=== PATIENT | female | born 1935 ===

== ENCOUNTER 2016-12-28 20:16 | Emergency (ER) | payer MEDICARE, MEDICAID ==
[2016-12-28] MEDS ORDERED: Sodium Chloride 0.9% 1,000 ML IV STA (20:57)
[2016-12-28 20:59] VITALS: RESP 16; TEMP 97.9; BMI 19.6
--- NOTE | 2016-12-28 21:21 | ED PDOC ---
Arrival/HPI - General Chief Complaint: GI Problem Time Seen by Provider: 12/28/16 20:51 Historian: Patient, Family - History of Present Illness Narrative History of Present Illness (Text): 12/28/16 21:14 81yo female with PMhx of GERD, hypertension, Dementia, present with complaint of multiple episodes of nonbilious/bloody vomiting and diarrhea, chills and weakness. the daughter by the bedside states vomiting became worse today. Denies abdominal pain, fever, chest pain, urinary symptoms, hematemesis, hematochezia, melena, sick contact, travel, Past Medical History - Provider Review Nursing Documentation Reviewed: Yes - Infectious Disease Hx of Infectious Diseases: None - Tetanus Immunization Tetanus Immunization: Unknown - Reproductive Menopause: Yes - Cardiac Hx Hypertension: Yes Hx Pacemaker: No - Pulmonary Hx Respiratory Disorders: No Hx Asthma: No - Neurological Hx Dementia: Yes Hx Paralysis: No - HEENT Hx HEENT Disorder: No Hx Cataracts: (cataract sx) - Renal Hx Renal Disorder: No - Endocrine/Metabolic Hx Endocrine Disorders: (periods of hypoglycemia) - Hematological/Oncological Hx Blood Transfusions: No Hx Blood Transfusion Reaction: No - Integumentary Hx Dermatological Disorder: No - Musculoskeletal/Rheumatological Hx Musculoskeletal Disorders: No Hx Arthritis: Yes Hx Falls: Yes Hx Osteoporosis: Yes Hx Unsteady Gait: Yes - Gastrointestinal Hx Diarrhea: Yes Hx Gastroesophageal Reflux: Yes Hx Nausea: Yes Hx Vomiting: Yes - Genitourinary/Gynecological Hx Genitourinary Disorders: No - Psychiatric Hx Psychophysiologic Disorder: No Hx Emotional Abuse: No Hx Physical Abuse: No Hx Substance Use: No - Surgical History Hx Cataract Extraction: Yes Hx Orthopedic Surgery: Yes (tib/fib post trauma) Other/Comment: "stomach surgery to remove mass" 1982 - Anesthesia Hx Anesthesia: Yes Hx Anesthesia Reactions: Yes (MILD NAUSEA) Hx Malignant Hyperthermia: No - Suicidal Assessment Feels Threatened In Home Enviroment: No Family/Social History - Physician Review Nursing Documentation Reviewed: Yes Family/Social History: Unknown Family HX Smoking Status: Never Smoked Hx Alcohol Use: No Hx Substance Use: No Allergies/Home Meds Allergies/Adverse Reactions: Allergies No Known Allergies Allergy (Verified 11/05/16 12:37) Home Medications: Home Meds Medication Instructions Recorded Confirmed Pregabalin [Lyrica] 50 mg PO TID 08/19/14 12/28/16 Rivastigmine 9.5 mg/24 hr [Exelon 1 patch TD DAILY 08/19/14 12/28/16 9.5 mg Patch] Carbidopa/Levodopa 25/100 mg 0.5 tab PO BID 03/25/16 12/28/16 [Sinemet] Valsartan [Diovan] 80 mg PO DAILY 03/25/16 12/28/16 Esomeprazole Magnesium [Nexium 20 mg PO DAILY 12/28/16 12/28/16 24Hr] Review of Systems - Physician Review All systems were reviewed & negative as marked: Yes - Review of Systems Constitutional: Normal Eyes: Normal ENT: Normal Respiratory: Normal Cardiovascular: Normal Gastrointestinal: Diarrhea, Nausea, Vomiting. absent: Abdominal Pain, Constipation, Hematochezia, Hematemesis Genitourinary Female: Normal Musculoskeletal: Normal Skin: Normal Neurological: Normal Endocrine: Normal Hemo/Lymphatic: Normal Psychiatric: Normal Physical Exam Vital Signs Reviewed: Yes Vital Signs Temp Pulse Resp BP Pulse Ox 12/28/16 23:24 61 16 135/65 99 12/28/16 21:25 56 L 16 135/70 100 12/28/16 20:17 97.9 F 60 16 146/76 98 Temperature: Afebrile Blood Pressure: Normal Pulse: Regular Respiratory Rate: Normal Appearance: Positive for: Well-Appearing, Non-Toxic, Comfortable Pain Distress: None Mental Status: Positive for: Alert and Oriented X 3 - Systems Exam Head: Present: Atraumatic, Normocephalic Pupils: Present: PERRL Extroacular Muscles: Present: EOMI Conjunctiva: Present: Normal Mouth: Present: Moist Mucous Membranes Neck: Present: Normal Range of Motion Respiratory/Chest: Present: Clear to Auscultation, Good Air Exchange. No: Respiratory Distress, Accessory Muscle Use Cardiovascular: Present: Regular Rate and Rhythm, Normal S1, S2. No: Murmurs Abdomen: Present: Normal Bowel Sounds. No: Tenderness, Distention, Peritoneal Signs, Rebound, Guarding, McBurney's Point Tender, Rovsing's Sign Present Back: Present: Normal Inspection Upper Extremity: Present: Normal Inspection. No: Cyanosis, Edema Lower Extremity: Present: Normal Inspection. No: Edema Neurological: Present: GCS=15, CN II-XII Intact, Speech Normal Skin: Present: Warm, Dry, Normal Color. No: Rashes Psychiatric: Present: Alert, Oriented x 3, Normal Insight, Normal Concentration Medical Decision Making ED Course and Treatment: 12/29/16 00:43 PT presented with stated history. She appeared comfortable and in no distress in ED. She was hydrated. On re evaluation she states she feels much better with medication. She was able to tolerate fluid in ED. Lab was unremarkable. She had leukocyte in the UA with WBC wnl. Pt will however be placed on abx. She was given and DC home with keflex. Referred to her PMD. Advised to follow BLAND diet. TRT ED for any new or worsening symptoms. - Lab Interpretations Lab Results: 12/28/16 21:20 12/28/16 21:20 Lab Results 12/28/16 22:15: Urine Color Yellow, Urine Appearance Clear, Urine pH 6.0, Ur Specific [place] 1.020, Urine Protein Negative, Urine Glucose (UA) Negative, Urine Ketones Negative, Urine Blood Negative, Urine Nitrate Negative, Urine Bilirubin Negative, Urine Urobilinogen 0.2, Ur Leukocyte Esterase Small H, Urine RBC Negative, Urine WBC 1 - 3, Ur Epithelial Cells 0 - 2 12/28/16 21:20: pO2 37, VBG pH 7.36, VBG pCO2 52.0, VBG HCO3 29.4 H, VBG Total CO2 31.0 H, VBG O2 Sat (Calc) 76.1 H, VBG Base Excess 2.8 H, VBG Potassium 4.0, Sodium 134.0, Chloride 102.0, Glucose 138 H, Lactate 2.1, FiO2 21.0, Venous Blood Potassium 4.0 12/28/16 21:20: Sodium 134, Chloride 97 L, Potassium 4.0, Carbon Dioxide 28, Anion Gap 13, BUN 7, Creatinine 0.6, Est GFR ( Amer) > 60, Est GFR (Non- Af Amer) > 60, Random Glucose 132 H, Calcium 9.0, Total Bilirubin 0.5, AST 24, ALT 14, Alkaline Phosphatase 126, Lactate Dehydrogenase 520, Total Creatine Kinase 54, Troponin I < 0.01, Total Protein 7.6, Albumin 3.7, Globulin 3.9, Albumin/Globulin Ratio 0.9 L, Amylase 53, Lipase 57 12/28/16 21:20: PT 11.2, INR 1.04, APTT 30.5 12/28/16 21:20: WBC 5.7 D, RBC 4.32, Hgb 10.7 L, Hct 32.9 L, MCV 76.2 L, MCH 24.8 L, MCHC 32.5, RDW 16.9 H, Plt Count 345, MPV 9.4, Gran % 69.4 H, Lymph % ( Auto) 22.6, [place] % (Auto) 7.6 H, Eos % (Auto) 0.2 L, Baso % (Auto) 0.2, Gran # 3.93, Lymph # 1.3, [place] # 0.4, Eos # 0.0, Baso # 0.01 - Medication Orders Current Medication Orders: Discontinued Medications Cephalexin Monohydrate (Keflex) 500 mg PO STAT STA Stop: 12/28/16 23:11 Last Admin: 12/28/16 23:25 Dose: 500 mg Famotidine (Pepcid) 20 mg IVP STAT STA Stop: 12/28/16 20:58 Last Admin: 12/28/16 21:22 Dose: 20 mg Sodium Chloride (Sodium Chloride 0.9%) 1,000 mls @ 100 mls/hr IV .Q10H STA Stop: 12/29/16 06:56 Last Admin: 12/28/16 21:21 Dose: 100 mls/hr Ondansetron HCl (Zofran Inj) 4 mg IVP STAT STA Stop: 12/28/16 20:58 Last Admin: 12/28/16 21:24 Dose: 4 mg Disposition/Present on Arrival - Present on Arrival Any Indicators Present on Arrival: No History of DVT/PE: No History of Uncontrolled Diabetes: No Urinary Catheter: No History of Decub. Ulcer: No History Surgical Site Infection Following: None - Disposition Have Diagnosis and Disposition been Completed?: Yes Diagnosis: Vomiting and diarrhea, UTI (urinary tract infection) Disposition: HOME/ ROUTINE Disposition Time: 23:00 Patient Plan: Discharge Condition: STABLE Discharge Instructions (ExitCare): Urinary Tract Infection in Women (ED), Acute Nausea and Vomiting (ED) Additional Instructions: Follow up with your doctor Follow BLAND diet Return to ED for any new or worsening symptoms Prescriptions: Cephalexin [cephalexin] 500 mg PO QID #28 cap Nitrofurantoin Macrocrystals [Macrobid] 100 mg PO BID #14 cap Ondansetron ODT [Zofran ODT] 4 mg PO Q8 #8 odt Referrals: Andrew Hart MD [Staff Provider] - Follow up with primary
[2016-12-28 21:27] LABS: ADD MANUAL DIFF? NO
[2016-12-28 21:38] LABS: BASO # 0.01 K/mm3 (0.0-2.0); BASO % 0.2 % (0.0-3.0); EOS % 0.2 % (1.5-5.0); GRAN # 3.93 (1.4-6.5); GRAN % 69.4 % (50.0-68.0); HEMATOCRIT 32.9 % (36.0-48.0); LYMPH # 1.3 (1.2-3.4); LYMPH % 22.6 % (22.0-35.0); MEAN CELL VOLUME 76.2 fL (80.0-105.0); MEAN CORPUSCULAR HEMOGLOBIN 24.8 pg (25.0-35.0); MEAN CORPUSCULAR HGB CONC 32.5 g/dl (31.0-37.0); MEAN PLATELET VOLUME 9.4 fl (7.0-11.0); MONO # 0.4 (0.1-0.6); MONO % 7.6 % (1.0-6.0); PLATELET COUNT 345 10^3/uL (120.0-450.0); RED CELL DISTRIBUTION WIDTH 16.9 % (11.5-14.5); WHITE BLOOD COUNT 5.7 10^3/ul (4.5-11.0)
[2016-12-28 21:39] LABS: ALB/GLOB RATIO 0.9 (1.1-1.8); ALKALINE PHOSPHATASE 126 U/L (38-133); ALT/SGPT 14 U/L (7-56); AMYLASE 53 U/L (35-125); AST/SGOT 24 U/L (15-39); BILIRUBIN,TOTAL 0.5 mg/dL (0.2-1.3); BLOOD UREA NITROGEN 7 mg/dL (7-21); CARBON DIOXIDE 28 mmol/L (21-33); CHLORIDE 97 mmol/L (98-107); GFR AFRICAN-AMERICAN > 60; GLUCOSE,RANDOM 132 mg/dL (70-110); LIPASE 57 U/L (23-300); SODIUM 134 mmol/L (132-148); TOTAL PROTEIN 7.6 g/dL (5.8-8.3)
[2016-12-28 21:45] LABS: INR 1.04 (0.93-1.08); PARTIAL THROMBOPLASTIN TIME 30.5 Seconds (23.7-30.8)
[2016-12-28 21:52] LABS: TROPONIN I < 0.01 ng/mL
[2016-12-28 21:54] LABS: VENOUS BLOOD GAS BASE EXCESS 2.8 mmol/L (0.0-2.0); VENOUS BLOOD PH 7.36 (7.32-7.43)
[2016-12-28 22:29] LABS: URINE BILIRUBIN NEGATIVE (NEGATIVE); URINE BLOOD NEGATIVE (NEGATIVE); URINE GLUCOSE (UA) NEGATIVE (NEGATIVE); URINE KETONE NEGATIVE (NEGATIVE); URINE LEUKOCYTE ESTERASE SMALL Leu/uL (NEGATIVE); URINE PROTEIN NEGATIVE mg/dL (<30 mg/dL); URINE UROBILINOGEN 0.2 E.U./dL (<1 E.U./dL)
[2016-12-28 22:31] LABS: URINE APPEARANCE CLEAR (CLEAR); URINE COLOR YELLOW (YELLOW)
[2016-12-28 22:33] LABS: URINE EPITHELIAL CELLS 0 - 2 /hpf (0-5); URINE RBC NEGATIVE /hpf (0-2)
[2016-12-28 23:24] VITALS: BP 135/65; PULSE 61; O2SAT 99
--- NOTE | 2016-12-29 22:12 | CARD ---
APPROVED REPORT EKG Measurement Heart [id number] <Conclusion> Sinus bradycardia Otherwise normal ECG
== END 2016-12-28 23:30 | disposition home or self-care (01) ==
LOC: ED 20:16
DX: N39.0 Urinary tract infection, site not specified (principal); R11.10 Vomiting, unspecified; R19.7 Diarrhea, unspecified
CPT/HCPCS: 80053; 81001; 82150; 82550; 82803; 83615; 83690; 84484; 85025; 85610; 85730; 87086; 93005; 96374; 96375; 99285; J2405; J7040

== ENCOUNTER 2017-05-06 14:02 | Observation (INO) | payer MEDICARE, MEDICAID ==
[2017-05-06] MEDS ORDERED: Sodium Chloride 0.9% 1,000 ML IV STA (14:38)
--- NOTE | 2017-05-06 14:43 | ED PDOC ---
Arrival/HPI - General Chief Complaint: Syncope Time Seen by Provider: 05/06/17 14:35 Historian: Patient, Family - History of Present Illness Narrative History of Present Illness (Text): 05/06/17 14:36 A 81 year old female is brought into the emergency department by family after witnessed syncopal episode prior to arrival. Son-in-law reports patient passed out while walking and family member caught her before falling. Patient reports she experienced diaphoresis and generalized weakness prior to episode. Patient denies any trauma, injuries, chest pain, shortness of breath, dyspnea on exertion or any other complaints. Time/Duration: Prior to Arrival Context: Home Past Medical History - Provider Review Nursing Documentation Reviewed: Yes - Infectious Disease Hx of Infectious Diseases: None - Tetanus Immunization Tetanus Immunization: Unknown - Cardiac Hx Cardiac Disorders: Yes Hx Hypertension: Yes Hx Pacemaker: No - Pulmonary Hx Respiratory Disorders: No Hx Asthma: No - Neurological Hx Neurological Disorder: Yes Hx Dementia: Yes Hx Paralysis: No - HEENT Hx HEENT Disorder: No Hx Cataracts: (cataract sx) - Renal Hx Renal Disorder: No - Endocrine/Metabolic Hx Endocrine Disorders: Yes (periods of hypoglycemia) - Hematological/Oncological Hx Blood Transfusions: No Hx Blood Transfusion Reaction: No - Integumentary Hx Dermatological Disorder: No - Musculoskeletal/Rheumatological Hx Musculoskeletal Disorders: No Hx Arthritis: Yes Hx Falls: Yes Hx Osteoporosis: Yes Hx Unsteady Gait: Yes - Gastrointestinal Hx Diarrhea: Yes Hx Gastroesophageal Reflux: Yes Hx Nausea: Yes Hx Vomiting: Yes - Genitourinary/Gynecological Hx Genitourinary Disorders: No - Psychiatric Hx Psychophysiologic Disorder: No Hx Emotional Abuse: No Hx Physical Abuse: No Hx Substance Use: No - Surgical History Hx Cataract Extraction: Yes Hx Orthopedic Surgery: Yes (tib/fib post trauma) Other/Comment: "stomach surgery to remove mass" 1982 - Anesthesia Hx Anesthesia: Yes Hx Anesthesia Reactions: Yes (MILD NAUSEA) Hx Malignant Hyperthermia: No - Suicidal Assessment Feels Threatened In Home Enviroment: No Family/Social History - Physician Review Nursing Documentation Reviewed: Yes Family/Social History: No Known Family HX Smoking Status: Never Smoked Hx Alcohol Use: No Hx Substance Use: No Allergies/Home Meds Allergies/Adverse Reactions: Allergies No Known Allergies Allergy (Verified 05/06/17 14:09) Home Medications: Home Meds Medication Instructions Recorded Confirmed Valsartan [Diovan] 80 mg PO DAILY 03/25/16 05/06/17 Esomeprazole Magnesium [Nexium 20 mg PO DAILY 12/28/16 05/06/17 24Hr] Gabapentin [Neurontin] 100 mg PO DAILY 05/06/17 05/06/17 Physical Exam - Physical Exam Narrative Physical Exam (Text): - Review of Systems Constitutional: (+) Generalized weakness absent: Weight Change, Fevers Eyes: Normal ENT: Normal Respiratory: Normal absent: SOB, HENDRICKS, Cough, Sputum Cardiovascular: (+) Syncope absent: Chest pain, Palpitations Gastrointestinal: Normal absent: Abdominal pain, Diarrhea, Nausea, Vomiting Genitourinary: Normal. absent: Dysuria, Frequency, Hematuria Musculoskeletal: Normal. absent: Arthralgias, Back Pain, Neck Pain Skin: Normal Neurological: Normal absent: Focal Weakness Endocrine: (+) Diaphoresis Hemo/Lymphatic: Normal Psychiatric: Normal - Physical exam Patient appears age appropriate, speaking full sentences without difficulty - Systems Exam Head: Present: Atraumatic, Normocephalic Pupils: Present: PERRL Extraocular Muscles: Present: EOMI Conjunctiva: Present: Normal Mouth: Present: Moist Mucous Membranes Neck: Present: Normal Range of Motion. No: MIDLINE TENDERNESS, Paraspinal Tenderness Respiratory/Chest: Present: Clear to Auscultation, Good Air Exchange. No: Respiratory Distress, Accessory Muscle Use, Tachypnic Cardiovascular: Present: Regular Rate and Rhythm, Normal S1, S2, Peripheral Pulses Present. No: Murmurs Abdomen: Present: Normal Bowel Sounds, No: Tenderness, Peritoneal Signs, Rebound, Guarding, Distention Back: Present: Normal Inspection. No: Midline Tenderness, Paraspinal Tenderness Upper Extremity: Present: Normal Inspection. No: Cyanosis, Edema Lower Extremity: Present: Normal Inspection. No: Edema Neurological: Present: GCS=15, Speech Normal, cranial nerves II through XII fully intact with no cerebellar abnormality, neuro-sensory fully intact. No focal neurological deficits. Skin: Present: Warm, Dry, Normal Color. No: Rashes Lymphatic: Present: OX3, NI, NC Psychiatric: Present: Alert, Oriented x 3, Normal Insight, Normal Concentration Vital Signs Reviewed: Yes Vital Signs Temp Pulse Resp BP Pulse Ox 05/06/17 14:15 97.8 F 60 18 119/72 100 Temperature: Afebrile Blood Pressure: Normal Pulse: Regular Respiratory Rate: Normal Appearance: Positive for: Well-Appearing, Non-Toxic, Comfortable Pain Distress: None Mental Status: Positive for: Alert and Oriented X 3 Finger Stick Blood Glucose: 111 Medical Decision Making ED Course and Treatment: 05/06/17 14:36 Impression: A 81 year old female brought after witnessed syncopal episode. Patient notes diaphoresis and generalized weakness prior to episode. Denies any trauma, injuries or any other complaints at this time. Physical exam unremarkable. Plan: -- Head CT -- Chest xray -- Labs -- Urinalysis -- IV fluids -- Reassess and disposition Progress Notes: EKG shows NSR at [address]-segment elevations, normal intervals. Interpreted by me. Report Date : 05/06/2017 15:19:17 PROCEDURE: CT HEAD WITHOUT CONTRAST. Dictator : Sukhdev Fischer MD IMPRESSION: Normal CT of the Head. Report Date : 05/06/2017 15:31:12 Procedure: Chest xray Dictator : Florentin Nicole MD IMPRESSION: No active disease. 05/06/17 16:[address] Bowling (covering for PMD) in detail, who accepts admission to her service. Pt aware of and agrees with plan - Lab Interpretations Lab Results: 05/06/17 15:20 05/06/17 15:30 Lab Results 05/06/17 15:30: Sodium 139, Potassium 4.8, Chloride 105, Carbon Dioxide 26, Anion Gap 13, BUN 19, Creatinine 0.9, Est GFR ( Amer) > 60, Est GFR (Non- Af Amer) 60, Random Glucose 105, Calcium 8.8, Total Bilirubin 0.5, AST 35, ALT 14, Alkaline Phosphatase 136 H, Lactate Dehydrogenase 570, Total Creatine Kinase 83, Troponin I < 0.01, Total Protein 6.8, Albumin 3.7, Globulin 3.2, Albumin/Globulin Ratio 1.2 05/06/17 15:20: PT 11.4, INR 1.06, APTT 27.7 05/06/17 15:20: WBC 7.0, RBC 4.22, Hgb 11.8 L, Hct 35.6 L, MCV 84.4, MCH 28.0, MCHC 33.1, RDW 16.5 H, Plt Count 266, MPV 9.3, Gran % 66.0, Lymph % (Auto) 24.4 , [place] % (Auto) 8.6 H, Eos % (Auto) 0.7 L, Baso % (Auto) 0.3, Gran # 4.62, Lymph # 1.7, [place] # 0.6, Eos # 0.1, Baso # 0.02 I have reviewed the lab results: Yes - RAD Interpretation Radiology Orders: 05/06/17 14:38 HEAD W/O CONTRAST [CT] Stat CHEST PORTABLE [RAD] Stat - Medication Orders Current Medication Orders: Discontinued Medications Sodium Chloride (Sodium Chloride 0.9%) 1,000 mls @ 1,000 mls/hr IV .Q1H STA Stop: 05/06/17 15:37 Last Admin: 05/06/17 15:20 Dose: 1,000 mls/hr - Scribe Statement The provider has reviewed the documentation as recorded by the Scribe Monet Ahumada Provider Scribe Attestation: All medical record entries made by the Scribe were at my direction and personally dictated by me. I have reviewed the chart and agree that the record accurately reflects my personal performance of the history, physical exam, medical decision making, and the department course for this patient. I have also personally directed, reviewed, and agree with the discharge instructions and disposition. Disposition/Present on Arrival - Present on Arrival Any Indicators Present on Arrival: No History of DVT/PE: No History of Uncontrolled Diabetes: No Urinary Catheter: No History of Decub. Ulcer: No History Surgical Site Infection Following: None - Disposition Have Diagnosis and Disposition been Completed?: Yes Diagnosis: Syncope Disposition: HOSPITALIZED Disposition Time: 16:42 Patient Plan: Observation Condition: STABLE Discharge Instructions (ExitCare): Syncope (ED) Referrals: Deep Shepherd MD [Primary Care Provider] - Follow up with primary Forms: e|tab (Kazakh)
--- NOTE | 2017-05-06 15:20 | CT ---
PROCEDURE: CT HEAD WITHOUT CONTRAST. HISTORY: syncope COMPARISON: 11/05/2016 TECHNIQUE: Axial computed tomography images were obtained through the head/brain without intravenous contrast. Radiation dose: Total exam DLP = 629.06 mGy-cm. This CT exam was performed using one or more of the following dose reduction techniques: Automated exposure control, adjustment of the mA and/or kV according to patient size, and/or use of iterative reconstruction technique. FINDINGS: HEMORRHAGE: No intracranial hemorrhage. BRAIN: No mass effect or edema. No atrophy or chronic microvascular ischemic changes. VENTRICLES: Unremarkable. No hydrocephalus. CALVARIUM: Unremarkable. PARANASAL SINUSES: Unremarkable as visualized. No significant inflammatory changes. MASTOID AIR CELLS: Unremarkable as visualized. No inflammatory changes. OTHER FINDINGS: None. IMPRESSION: Normal CT of the Head.
--- NOTE | 2017-05-06 15:32 | RAD ---
HISTORY: cough COMPARISON: 11/05/2016 FINDINGS: LUNGS: No active pulmonary disease. PLEURA: No significant pleural effusion identified, no pneumothorax apparent. CARDIOVASCULAR: Normal. OSSEOUS STRUCTURES: No significant abnormalities. VISUALIZED UPPER ABDOMEN: Normal. OTHER FINDINGS: None. IMPRESSION: No active disease.
[2017-05-06 15:47] LABS: BASO # 0.02 K/mm3 (0.0-2.0); BASO % 0.3 % (0.0-3.0); EOS # 0.1 (0.0-0.7); EOS % 0.7 % (1.5-5.0); GRAN # 4.62 (1.4-6.5); HEMATOCRIT 35.6 % (36.0-48.0); LYMPH # 1.7 (1.2-3.4); LYMPH % 24.4 % (22.0-35.0); MEAN CELL VOLUME 84.4 fl (80.0-105.0); MEAN CORPUSCULAR HGB CONC 33.1 g/dl (31.0-37.0); MEAN PLATELET VOLUME 9.3 fl (7.0-11.0); MONO # 0.6 (0.1-0.6); MONO % 8.6 % (1.0-6.0); RED CELL DISTRIBUTION WIDTH 16.5 % (11.5-14.5)
[2017-05-06 15:54] LABS: INR 1.06 (0.93-1.08); PARTIAL THROMBOPLASTIN TIME 27.7 Seconds (23.7-30.8)
[2017-05-06 15:58] LABS: ALB/GLOB RATIO 1.2 (1.1-1.8); ALKALINE PHOSPHATASE 136 U/L (38-126); ALT/SGPT 14 U/L (7-56); AST/SGOT 35 U/L (14-36); BILIRUBIN,TOTAL 0.5 mg/dL (0.2-1.3); BLOOD UREA NITROGEN 19 mg/dL (7-21); CALCIUM 8.8 mg/dL (8.4-10.5); CARBON DIOXIDE 26 mmol/L (21-33); CHLORIDE 105 mmol/L (98-107); GFR AFRICAN-AMERICAN > 60; GLUCOSE,RANDOM 105 mg/dL (70-110); POTASSIUM 4.8 mmol/L (3.6-5.0); SODIUM 139 mmol/L (132-148); TOTAL PROTEIN 6.8 g/dL (5.8-8.3)
[2017-05-06 16:09] LABS: TROPONIN I < 0.01 ng/mL
[2017-05-06] MEDS ORDERED: Sodium Chloride 0.9% 1,000 ML IV ONE (17:19)
[2017-05-06] MEDS ORDERED: Non Formulary Medication (Valsartan [Diovan] 80 MG) PO SCH (17:30)
[2017-05-06 19:41] LABS: URINE BILIRUBIN NEGATIVE (NEGATIVE); URINE BLOOD NEGATIVE (NEGATIVE); URINE GLUCOSE (UA) NEGATIVE (NEGATIVE); URINE KETONE NEGATIVE (NEGATIVE); URINE LEUKOCYTE ESTERASE TRACE Leu/uL (NEGATIVE); URINE PROTEIN NEGATIVE mg/dL (<30 mg/dL); URINE UROBILINOGEN 0.2 E.U./dL (<1 E.U./dL)
[2017-05-06 19:44] LABS: URINE APPEARANCE CLEAR (CLEAR); URINE COLOR YELLOW (YELLOW)
[2017-05-06 19:52] LABS: URINE RBC 0 - 2 /hpf (0-2)
[2017-05-06 23:02] VITALS: BMI 21.2
--- NOTE | 2017-05-06 23:14 | CARD ---
APPROVED REPORT EKG Measurement Heart [id number] <Conclusion> Normal sinus rhythm Normal ECG
--- NOTE | 2017-05-07 02:43 | HP ---
DATE: 05/06/2017 HISTORY OF PRESENT ILLNESS: Ms. Bush is an 81-year-old female seen in ED. She was found to have a syncopal episode. She was about to fall, but was held by son-in-law. She was walking, did not fall on the ground. She was diaphoretic. No dizziness. She feels fine now. No chest pain. No shortness of breath. She has history of osteoporosis. No history of fracture. She also has osteoarthritis. No active issues right now. She also has history of GE reflux, stable now. No epigastric pain. No nausea. No vomiting. PAST MEDICAL HISTORY: GE reflux, hypertension, osteoporosis. She has baseline dementia. PAST SURGICAL HISTORY: Cataract, orthopedic surgery status post trauma. FAMILY HISTORY: Noncontributory. PERSONAL HISTORY: Never smoked. No history of alcohol abuse. ALLERGIES: NO KNOWN DRUG ALLERGIES. HOME MEDICATIONS: Diovan mg daily, Nexium 20 mg daily, gabapentin 100 mg daily. REVIEW OF SYSTEMS: As per HPI. Rest of 12-point review of system reviewed and negative. PHYSICAL EXAMINATION GENERAL: Comfortable in bed, in no acute distress. VITAL SIGNS: Temperature 98.7, pulse rate is 60 per minute, respiratory rate 18 per minute, blood pressure 119/72, pulse ox is 100% on room air. HEENT: Nontraumatic, normal. Oral mucosa moist. NECK: Supple. CHEST: Air entry present and equal bilateral. No added sounds. CARDIOVASCULAR: S1 and S2 normal. No murmur. No gallop. ABDOMEN: Soft, nontender. No hepatosplenomegaly. EXTREMITIES: No edema. TESTER/LIFT TRUCKER: Alert, oriented x3. No focal sensory or motor deficits. SKIN: Warm. No petechia. No rash. LABORATORY DATA: Chest x-ray, no infiltrate. UA negative. Labs; white count 7, hemoglobin 11.8, hematocrit 35.6, platelet count 266. Sodium 139, potassium 4.8, BUN 19, creatinine 0.9. Monocyte 8.6%, eosinophil . Troponin negative. CAT scan of the head unremarkable. EKG: Normal sinus rhythm at 62 beats per minute. No ST-T changes. ASSESSMENT: 1. Syncope. 2. Hypertension. 3. Mild anemia. 4. Osteoporosis. 5. Gastroesophageal reflux. PLAN: She will be admitted to telemetry. We will do cardiac enzymes, serial twice. Neurology consultation with Dr. Klein requested. We will continue Neurontin 100 mg daily. Continue Cozaar 50 mg daily, Protonix 40 mg daily. We will give IV fluids because of dehydration 60 mL an hour, Tylenol 650 mg q.4 hours p.r.n. for pain. We will do the workup for anemia, if stable we will consider discharge tomorrow. Katherine Bowling MD
[2017-05-07 06:06] VITALS: RESP 18; O2SAT 98
--- NOTE | 2017-05-07 06:20 | CP.PCM.PN ---
Subjective - Date & Time of Evaluation Date of Evaluation: 05/07/17 Time of Evaluation: 06:19 - Subjective Subjective: draft leg pain tylenol Objective - Vital Signs/Intake and Output Vital Signs (last 24 hours): Temp Pulse Resp BP Pulse Ox 98.1 F 54 L 18 120/66 98 05/07/17 06:00 05/07/17 06:00 05/07/17 06:00 05/07/17 06:00 05/07/17 06:00 Intake and Output: 05/06/17 05/07/17 18:59 06:59 Intake Total 600 Balance 600 - Medications Medications: Current Medications Acetaminophen (Tylenol 325mg Tab) 650 mg PO Q6H PRN PRN Reason: Pain, Mild (1-3) Last Admin: 05/07/17 00:50 Dose: 650 mg Gabapentin (Neurontin) 100 mg PO DAILY PHILLY PRN Reason: Protocol Last Admin: 05/06/17 18:05 Dose: 100 mg Sodium Chloride (Sodium Chloride 0.9%) 1,000 mls @ 60 mls/hr IV .[id number] ONE Stop: 05/07/17 09:58 Last Admin: 05/06/17 18:05 Dose: 60 mls/hr Losartan Potassium (Cozaar) 50 mg PO DAILY PHILLY Pantoprazole Sodium (Protonix Ec Tab) 40 mg PO ACB PHILLY - Labs Labs: PT 11.4 Seconds (9.9-11.8) 05/06/17 15:20 INR 1.06 (0.93-1.08) 05/06/17 15:20 APTT 27.7 Seconds (23.7-30.8) 05/06/17 15:20
[2017-05-07] MEDS ORDERED: Pantoprazole 40 mg EC Tab PO SCH (07:30)
[2017-05-07 08:18] LABS: IRON 136 ug/dL (45-180)
[2017-05-07 08:24] LABS: TROPONIN I < 0.01 ng/mL
[2017-05-07 13:03] VITALS: BP 136/65; PULSE 60; TEMP 99
--- NOTE | 2017-05-07 16:01 | CP.PCM.CON ---
<Surya Camilo - Last Filed: 05/07/17 15:50> History of Present Illness - History of Present Illness History of Present Illness: Neurology Consult Note for Dr. Klein Service Consulted for: syncope HPI: This is an 81 yo F with PMH of HTN, Dementia, Osteoperosis, Arthritis, GERD, HLD, prior hypoglycemic episodes, and Fibromyalgia who presented to [facility] after witness syncopal episode at home. As per daughter at bedside, patient appeared pale and diaphoretic when trying to check her blood sugar at home (unclear why she checks blood sugars, NOT a diabetic; was 86 at that check), and then when walking to the bathroom, syncopized. As per daughter , pt caught by family before she could fall to the floor, no head trauma. Patient regained consciousness slowly after 2-3 minutes, but remained very confused initially. 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 Denies shortness of breath, chest pain, fevers/chills, nausea/emesis, diarrhea/constipation, dysuria/ hematuria, focal weakness/paresthesia, or dizziness/room-spinning. Of note, per daughter, patient normally has low-normal BPs, and she had just taken her Valsartan prior to this episode. All other ROS in 12-point system review negative. PMH: as above PSH: cataract removal (B/L), unspecified stomach surgery for "mass removal," tib /fib repair (side unknown) FHx: Denies SHx: denies tobacco/alcohol/illicits PMD: Dr. Shepherd Review of Systems - Review of Systems All systems: reviewed and no additional remarkable complaints except (as per HPI ) Past Patient History - Infectious Disease Hx of Infectious Diseases: None - Tetanus Immunizations Tetanus Immunization: Unknown - Past Social History Smoking Status: Never Smoked - CARDIAC Hx Cardiac Disorders: Yes Hx Hypertension: Yes Hx Pacemaker: No - PULMONARY Hx Respiratory Disorders: Yes Hx Asthma: Yes ((mild)was not diagnosed) - NEUROLOGICAL Hx Neurological Disorder: No Hx Dementia: Yes - HEENT Hx HEENT Problems: Yes Hx Cataracts: Yes (bilateral cateract extraction) - RENAL Hx Chronic Kidney Disease: No - ENDOCRINE/METABOLIC Hx Endocrine Disorders: Yes (periods of hypoglycemia) - HEMATOLOGICAL/ONCOLOGICAL Hx Blood Disorders: No - INTEGUMENTARY Hx Dermatological Problems: No - MUSCULOSKELETAL/RHEUMATOLOGICAL Hx Musculoskeletal Disorders: Yes Hx Arthritis: Yes Hx Falls: Yes Hx Fractures: Yes Hx Unsteady Gait: Yes - GASTROINTESTINAL Hx Gastrointestinal Disorders: Yes Hx Gastroesophageal Reflux: Yes - GENITOURINARY/GYNECOLOGICAL Hx Genitourinary Disorders: Yes - PSYCHIATRIC Hx Psychophysiologic Disorder: No Hx Emotional Abuse: No Hx Physical Abuse: No Hx Substance Use: No - SURGICAL HISTORY Hx Surgeries: Yes Hx Orthopedic Surgery: Yes (tib/fib post trauma) Other/Comment: "stomach surgery to remove mass" 1982 - ANESTHESIA Hx Anesthesia: Yes Hx Anesthesia Reactions: Yes (MILD NAUSEA) Hx Malignant Hyperthermia: No Meds Home Medications: Home Medication List Medication Instructions Recorded Confirmed Type Aspirin [Adult Low Dose Aspirin EC] 81 mg PO DAILY #30 tablet. 05/07/17 Rx Allergies/Adverse Reactions: Allergies Allergy/AdvReac Type Severity Reaction Status Date / Time No Known Allergies Allergy Verified 05/06/17 14:09 Physical Exam - Constitutional Appears: Well, Non-toxic, No Acute Distress - Head Exam Head Exam: ATRAUMATIC, NORMAL INSPECTION, NORMOCEPHALIC - Eye Exam Eye Exam: EOMI, Normal appearance, PERRL. absent: Conjunctival injection, Scleral icterus Pupil Exam: NORMAL ACCOMODATION, PERRL. absent: Fixed, Irregular, Unequal - ENT Exam ENT Exam: Mucous Membranes Moist. absent: Mucous Membranes Dry - Neck Exam Neck exam: Positive for: Full Rom, Normal Inspection. Negative for: Tenderness , Thyromegaly - Respiratory Exam Respiratory Exam: Clear to Auscultation Bilateral, NORMAL BREATHING PATTERN. absent: Accessory Muscle Use, Chest Wall Tenderness, Decreased Breath Sounds, Rales, Rhonchi, Wheezes - Cardiovascular Exam Cardiovascular Exam: REGULAR RHYTHM, RRR, +S1, +S2. absent: Bradycardia, Tachycardia, Irregular Rhythm, JVD, +S4 - GI/Abdominal Exam GI & Abdominal Exam: Normal Bowel Sounds, Soft. absent: Diminished Bowel Sounds , Distended, Firm, Hyperactive Bowel Sounds, Hypoactive Bowel Sounds, Rigid, Tenderness - Extremities Exam Extremities exam: Positive for: normal capillary refill, normal inspection, pedal pulses present. Negative for: calf tenderness, pedal edema, tenderness - Back Exam Back exam: absent: CVA tenderness (L), CVA tenderness (R) - Neurological Exam Neurological exam: Alert, CN II-XII Intact, Oriented x3 Additional comments: 5/5 motor strength in all extremities motor and sensory intact and equal bilaterally no axtaxia, no resting/intention tremors following all commands appropriately spontaneously moving all extremities - Psychiatric Exam Psychiatric exam: Normal Affect, Normal Mood - Skin Skin Exam: Dry, Intact, Normal Color, Warm Results - Vital Signs Recent Vital Signs: Last Vital Signs Temp 99.0 F 05/07/17 12:00 Pulse 60 05/07/17 12:00 Resp 18 05/07/17 12:00 BP 136/65 05/07/17 12:00 Pulse Ox 98 05/07/17 06:00 - Labs Result Diagrams: 05/06/17 15:20 05/06/17 15:30 Labs: Laboratory Results - last 24 hr 05/06/17 05/07/17 05/07/17 19:21 07:30 07:30 POC Glucose (mg/dL) Iron 136 TIBC 380 % Saturation 36 Ferritin 13.3 Lactate Dehydrogenase 502 Total Creatine Kinase 72 Troponin I < 0.01 Vitamin B12 330 Urine Color Yellow Urine Appearance Clear Urine pH 6.0 Ur Specific Crum 1.010 Urine Protein Negative Urine Glucose (UA) Negative Urine Ketones Negative Urine Blood Negative Urine Nitrate Negative Urine Bilirubin Negative Urine Urobilinogen 0.2 Ur Leukocyte Esterase Trace H Urine RBC 0 - 2 Urine WBC 1 - 3 Ur Epithelial Cells 3 - 4 05/07/17 05/07/17 08:08 11:34 POC Glucose (mg/dL) 86 97 Iron TIBC % Saturation Ferritin Lactate Dehydrogenase Total Creatine Kinase Troponin I Vitamin B12 Urine Color Urine Appearance Urine pH Ur Specific Crum Urine Protein Urine Glucose (UA) Urine Ketones Urine Blood Urine Nitrate Urine Bilirubin Urine Urobilinogen Ur Leukocyte Esterase Urine RBC Urine WBC Ur Epithelial Cells Assessment & Plan - Assessment and Plan (Free Text) Assessment: This is an 81 yo F with PMH of HTN, Dementia, Osteoperosis, Arthritis, GERD, HLD, prior hypoglycemic episodes, and Fibromyalgia who presented to [facility] after witness syncopal episode at home. Her syncopal episode was likely vasovagal with superimposed dehydration vs 2/2 bradycardia vs medication-induced vs repeat hypoglycemic episode. Neurologically, fully intact on exam. Plan: 1) Encourage PO fluid intake 2) Encourage checking blood pressures at home prior to administering antihypertensives, and hold parameter if SBP < 110 3) PT/OT for assessment of longstanding (as reported by daughter) gait disturbance Patient seen, reviewed, and discussed with attending, Dr. Edward Klein. <Brendan Klein - Last Filed: 05/07/17 16:32> Results - Vital Signs Recent Vital Signs: Last Vital Signs Temp 99.0 F 05/07/17 12:00 Pulse 60 05/07/17 12:00 Resp 18 05/07/17 12:00 BP 136/65 05/07/17 12:00 Pulse Ox 98 05/07/17 06:00 - Labs Result Diagrams: 05/06/17 15:20 05/06/17 15:30 Labs: Laboratory Results - last 24 hr 05/06/17 05/07/17 05/07/17 19:21 07:30 07:30 POC Glucose (mg/dL) Iron 136 TIBC 380 % Saturation 36 Ferritin 13.3 Lactate Dehydrogenase 502 Total Creatine Kinase 72 Troponin I < 0.01 Vitamin B12 330 Urine Color Yellow Urine Appearance Clear Urine pH 6.0 Ur Specific Crum 1.010 Urine Protein Negative Urine Glucose (UA) Negative Urine Ketones Negative Urine Blood Negative Urine Nitrate Negative Urine Bilirubin Negative Urine Urobilinogen 0.2 Ur Leukocyte Esterase Trace H Urine RBC 0 - 2 Urine WBC 1 - 3 Ur Epithelial Cells 3 - 4 05/07/17 05/07/17 08:08 11:34 POC Glucose (mg/dL) 86 97 Iron TIBC % Saturation Ferritin Lactate Dehydrogenase Total Creatine Kinase Troponin I Vitamin B12 Urine Color Urine Appearance Urine pH Ur Specific Crum Urine Protein Urine Glucose (UA) Urine Ketones Urine Blood Urine Nitrate Urine Bilirubin Urine Urobilinogen Ur Leukocyte Esterase Urine RBC Urine WBC Ur Epithelial Cells Attending/Attestation - Attestation I have personally seen and examined this patient.: Yes I have fully participated in the care of the patient.: Yes I have reviewed all pertinent clinical information: Yes
--- NOTE | 2017-05-07 16:42 | CARD ---
APPROVED REPORT EXAM: Two-dimensional and M-mode echocardiogram with Doppler and color Doppler. INDICATION Syncope 2D DIMENSIONS Left Atrium (2D)3.7 (1.6-4.0cm)IVSd1.0 (0.7-1.1cm) LVDd3.8 (3.9-5.9cm)PWd0.8 (0.7-1.1cm) LVDs2.5 (2.5-4.0cm)FS (%) 33.7 % LVEF (%)63.2 (>50%) M-Mode DIMENSIONS Aortic Root2.10 (2.2-3.7cm)Aortic Cusp Exc.1.10 (1.5-2.0cm) Aortic Valve AoV Peak Mzicocqi185.0cm/Thomas Peak GR.9mmHg Mitral Valve MV E Daaainds55.1cm/sMV A Ebzvgwsu67.2cm/sE/A ratio1.3 TDI E/Lateral E'0.0E/Medial E'0.0 Tricuspid Valve TR Peak [id number]/sRAP [id number] Peak Gr.29mmHg [id number] LEFT VENTRICLE The left ventricle is normal size. There is normal left ventricular wall thickness. The left ventricular function is normal. The left ventricular ejection fraction is within the normal range. There is normal LV segmental wall motion. Transmitral Doppler flow pattern is Grade II-pseudonormal filling dynamics. RIGHT VENTRICLE The right ventricle is normal size. There is normal right ventricular wall thickness. The right ventricular systolic function is normal. ATRIA The left atrium size is normal. The right atrium size is normal. AORTIC VALVE The aortic valve is mildly thickened. No aortic regurgitation is present. MITRAL VALVE The mitral valve is mildly thickened. Mitral regurgitation is mild. TRICUSPID VALVE There is mild tricuspid regurgitation. There is mild pulmonary hypertension. GREAT VESSELS The aortic root is normal in size. The IVC collapses <50% with inspiration. <Conclusion> The left ventricle is normal size. There is normal left ventricular wall thickness. The left ventricular function is normal. The left ventricular ejection fraction is within the normal range. There is normal LV segmental wall motion. Mitral regurgitation is mild. There is mild tricuspid regurgitation. There is mild pulmonary hypertension.
--- NOTE | 2017-05-07 23:35 | DS ---
DATE OF DISCHARGE: 05/07/2017 DISCHARGE DIAGNOSES: 1. Syncope. 2. Hypertension. 3. Anemia. 4. Osteoporosis. 5. Gastroesophageal reflux disease. HOSPITAL COURSE: Mr. Bush was admitted with syncope. She did not fall. She was admitted to hospital and telemetry monitoring was done. Three sets of cardiac enzymes were negative. Blood pressure was controlled on current medications. She was asymptomatic during hospitalization. Cardiology consult was requested. Neurology consult by Dr. Klein requested. She is being discharged in stable condition. PHYSICAL EXAMINATION ON DISCHARGE: GENERAL: Comfortable in bed in no acute distress. VITAL SIGNS: Temperature 98.7, heart rate 100 per minute, respiratory rate 16 per minutes, and blood pressure 100/70. HEENT: Normal. Pallor positive. NECK: Supple. CHEST: Air entry present and equal bilateral. No added sounds. CARDIOVASCULAR: Within normal limits. S1 and S2 normal. No murmur and no gallop. ABDOMEN: Soft and nontender. No hepatosplenomegaly. EXTREMITIES: No edema. SPINE: Nontender. SKIN: No petechiae. No rash. CONDITION ON DISCHARGE: Stable. DISCHARGE DISPOSITION: Home. DISCHARGE MEDICATIONS: Gabapentin 100 mg daily, Cozaar 50 mg daily, Protonix 40 daily, Tylenol 650 p.r.n. for pain. DISCHARGE INSTRUCTIONS: Followup with Dr. Gentile in 1 week. Diet, regular diet. Prescriptions given to the patient. Discussed with the staff nurse. Discussed with the patient. Time spent in preparing discharge and coordinating care 55 minutes. Katherine Bowling MD
== END 2017-05-07 13:08 | disposition home or self-care (01) ==
LOC: ED 14:02 → ERH 16:35 → 2RSO 21:58
PROVIDERS: ADMIT Internal Medicine Medical Oncology; ATTEND Internal Medicine Medical Oncology
DX: E86.0 Dehydration (principal); R00.1 Bradycardia, unspecified; E16.2 Hypoglycemia, unspecified; R55 Syncope and collapse; T50.905A Adverse effect of unspecified drugs, medicaments and biological substances, initial encounter; I10 Essential (primary) hypertension; F03.90 Unspecified dementia, unspecified severity, without behavioral disturbance, psychotic disturbance, mood disturbance, and anxiety; M81.0 Age-related osteoporosis without current pathological fracture; M19.90 Unspecified osteoarthritis, unspecified site; K21.9 Gastro-esophageal reflux disease without esophagitis; E78.5 Hyperlipidemia, unspecified; M79.7 Fibromyalgia; J45.909 Unspecified asthma, uncomplicated; D64.9 Anemia, unspecified; Z79.82 Long term (current) use of aspirin; Z79.899 Other long term (current) drug therapy; Z98.42 Cataract extraction status, left eye; Z98.41 Cataract extraction status, right eye; R26.81 Unsteadiness on feet; R53.1 Weakness; R40.2412 Glasgow coma scale score 13-15, at arrival to emergency department
CPT/HCPCS: 36415; 70450; 71010; 80053; 81001; 82550; 82607; 82728; 82948; 83540; 83550; 83615; 84484; 85025; 85610; 85730; 87086; 93005; 93306; 99285; G0378; J7040

== ENCOUNTER 2017-09-30 10:17 | Day surgery (SDC) | payer MEDICARE, MEDICAID ==
[2017-09-23 12:26] VITALS: BMI 22.2
[2017-09-30] MEDS ORDERED: Propofol 10 mg/ml Inj (20 ML) ONE ×2 (12:47→13:28)
[2017-09-30] MEDS ORDERED: Etomidate 40 MG/20 ML ML IV ONE (12:47)
[2017-09-30] MEDS ORDERED: Phenylephrine 10 mg/ml Inj ONE (12:50)
[2017-09-30] MEDS ORDERED: Sodium Chloride 0.9% 1,000 ML IV SCH (14:15)
[2017-09-30 14:39] VITALS: BP 149/97; PULSE 63; RESP 20; TEMP 97; O2SAT 99
== END 2017-09-30 15:43 | disposition home or self-care (01) ==
LOC: ENDO 10:17
PROVIDERS: ATTEND Internal Medicine Gastroenterology
DX: K62.1 Rectal polyp (principal); D50.9 Iron deficiency anemia, unspecified; K29.50 Unspecified chronic gastritis without bleeding; K44.9 Diaphragmatic hernia without obstruction or gangrene; K64.8 Other hemorrhoids; K63.89 Other specified diseases of intestine; N81.4 Uterovaginal prolapse, unspecified; K31.84 Gastroparesis; R74.8 Abnormal levels of other serum enzymes
CPT/HCPCS: 43239; 45380; 88305; 88342; J2001; J2370; J2704; J7040 ×2